=== PATIENT | female | born 1975 | race Caucasian/White ===

== ENCOUNTER → 2017-08-09 | Outpatient (CLI) | payer BC ==
--- NOTE | 2017-08-10 14:15 | Diagnostic Imaging Report ---
EXAMINATION: Bilateral screening mammogram 2D views with tomosynthesis. The current study was also evaluated with a Computer Aided Detection (CAD) system. INDICATION: Screening. PERSONAL HISTORY: No current complaints stated on the questionnaire. COMPARISON: No prior studies are available for comparison. This is a baseline exam. FINDINGS: Allowing for technique and positional differences, no suspicious change is seen. IMPRESSION: No significant change. ACR BI-RADS Category 2: Benign findings. Result letter will be mailed to the patient. Note: At least 10% of breast cancer is not imaged by mammography. Dictated by: Dictated on workstation # [id number]
== END ==
LOC: RAD 14:47
PROVIDERS: ATTEND Nurse Practitioner Family
DX: Z12.31 Encounter for screening mammogram for malignant neoplasm of breast (principal)
CPT/HCPCS: 77067

== ENCOUNTER → 2018-08-17 | Outpatient (CLI) | payer BC ==
[~2018-08-17] MED LIST: HYDR25TA4; LOVA20TA2; METO-395; PRD10T PO
--- NOTE | 2018-08-18 16:52 | Diagnostic Imaging Report ---
Indication: Routine screening. Comparison is made with prior mammogram from 08/09/2017. 2-D and 3-D bilateral screening mammography was performed with CAD. Scattered fibroglandular densities are identified bilaterally. The parenchymal pattern is stable. No dominant mass or malignant-appearing microcalcifications are seen. The axillae are unremarkable. Impression: BI-RADS category 1 No mammographic features suspicious for malignancy are identified. ACR BI-RADS Category 1: Negative. Result letter will be mailed to the patient. Note: At least 10% of breast cancer is not imaged by mammography. Dictated by: Dictated on workstation # [id number]
== END ==
LOC: RAD 15:05
PROVIDERS: ATTEND Nurse Practitioner Family
DX: Z12.31 Encounter for screening mammogram for malignant neoplasm of breast (principal)
CPT/HCPCS: 77067

== ENCOUNTER → 2019-09-04 | Outpatient (CLI) | payer BC ==
--- NOTE | 2019-09-05 10:03 | Diagnostic Imaging Report ---
Digital mammogram. Bilateral screening. This study was compared to the prior exams of 08/17/2018 and 08/09/2017. At this time there are no current complaints. The fibroglandular tissue in both breasts is heterogeneously dense. This does limit the sensitivity of this exam. The density of the fibroglandular tissue is perhaps somewhat greater than on the prior exam. The breasts also seen smaller than on the prior exam. This may be related to interval weight loss. Correlation with patient's history would be recommended. There is no primary or secondary sign of malignancy noted. Impression: There is no evidence for malignancy. ACR BI-RADS Category 1: Negative. Result letter will be mailed to the patient. Note: At least 10% of breast cancer is not imaged by mammography. Dictated by: Dictated on workstation # [id number]
== END ==
LOC: RAD 08:16
DX: Z12.31 Encounter for screening mammogram for malignant neoplasm of breast (principal)
CPT/HCPCS: 77067

== ENCOUNTER → 2022-07-06 | Outpatient (CLI) | payer BC ==
[~2022-07-06] MED LIST changes: -METO-395; +MTP100TCR
--- NOTE | 2022-07-07 14:48 | Diagnostic Imaging Report ---
INDICATION: Routine screening. COMPARISON: 09/04/2019 and 08/17/2018. TECHNIQUE: 2D and 3D bilateral screening mammography was performed with CAD. FINDINGS: Both breasts are heterogeneously dense, limiting the sensitivity of mammography. The parenchymal pattern is stable. No mass or malignant appearing microcalcifications are seen. The axillae are unremarkable. IMPRESSION: No mammographic features suspicious for malignancy are identified. ACR BI-RADS Category 1: Negative. Result letter will be mailed to the patient. Note: At least 10% of breast cancer is not imaged by mammography. Dictated by: Dictated on workstation # [id number]
== END ==
LOC: RAD 15:45
PROVIDERS: ATTEND Family Medicine
DX: Z12.31 Encounter for screening mammogram for malignant neoplasm of breast (principal)
CPT/HCPCS: 77063; 77067

== ENCOUNTER → 2022-11-27 | Outpatient (CLI) | payer BC ==
--- NOTE | 2022-11-27 10:25 | Diagnostic Imaging Report ---
EXAMINATION: US Thyroid. TECHNIQUE: Multiple real-time grayscale images were obtained of the thyroid in various projections. HISTORY: Enlarged right thyroid lobe. COMPARISON: None available. FINDINGS: The right lobe of the thyroid measures 6.6 x 2.2 x 3.1 cm. The left lobe of the thyroid measures 6.2 x 2.0 x 2.6 cm. The isthmus measures 0.7 cm. Enlarged thyroid gland with heterogenous parenchyma. Diffuse moderate hypervascularity of the thyroid gland. There are no discrete nodules. IMPRESSION: Enlarged heterogenous and hypervascular thyroid may be seen with thyroiditis. No suspicious thyroid nodules identified. Dictated by: Dictated on workstation # [id number]
== END ==
LOC: RAD 08:48
PROVIDERS: ATTEND Family Medicine
DX: E04.1 Nontoxic single thyroid nodule (principal)
CPT/HCPCS: 76536

== ENCOUNTER 2023-07-21 05:33 | Outpatient (CLI) | payer BC ==
[~2023-07-21] VITALS: Ht 165 cm; Wt 110.4 kg
[2023-07-21] MEDS ORDERED: CYAN250010 PO (09:53)
[2023-07-21] MEDS ORDERED: MULT-1136 PO (09:53)
[2023-07-21] MEDS ORDERED: CINN500C2 PO (09:53)
[2023-07-21] MEDS ORDERED: TURM500T PO (09:53)
[2023-07-21] MEDS ORDERED: POTA99CA PO (09:53)
[2023-07-21] MEDS ORDERED: FISH1CAP15 PO (09:53)
[2023-07-21] MEDS ORDERED: METF-397 PO (09:53)
[2023-07-21] MEDS ORDERED: CIDE300T3 PO (09:53)
[2023-07-21] MEDS ORDERED: FERR-84 PO (09:53)
[2023-07-21] MEDS ORDERED: CHOL10008 PO (09:53)
== END 2023-07-21 10:11 | disposition home or self-care (01) ==
LOC: PREOP 05:33
PROVIDERS: ATTEND Internal Medicine
DX: Z01.818 Encounter for other preprocedural examination (principal)

== ENCOUNTER 2023-07-30 07:02 | Day surgery (SDC) | payer BC ==
--- NOTE | 2023-07-15 08:40 | HISTORY AND PHYSICAL ---
COLONOSCOPY HISTORY AND PHYSICAL HISTORY OF PRESENT ILLNESS: The patient is a 47-year-old white female referred by Dr. Mancera for her first screening colonoscopy. She denies bright red blood per rectum, melena, change in bowel habit or abdominal pain. She reports she has had one uncle with colon cancer and her mother had history of colon polyps. PAST MEDICAL HISTORY: Significant for history of polycystic ovary disease, hypertension and hyperlipidemia with no known history of vascular disease. PAST SURGICAL HISTORY: She reports no past surgeries. ALLERGIES: Reports no known drug allergies. FAMILY HISTORY: Father around the age of 70 with complications of diabetes, had an MRI and renal failure. Mother at 69, acute respiratory failure. Both were smokers as I recall. SOCIAL HISTORY: She is employed with no past smoking history, but secondhand smoke exposure and no history of alcohol consumption. REVIEW OF SYSTEMS: CONSTITUTIONAL: Denies night sweats, chills, fever or change in weight. PULMONARY: Denies cough, wheezing or shortness of breath. GASTROINTESTINAL: As noted in the HPI. CARDIOVASCULAR: Denies chest pain, syncope, orthopnea, PND, or pedal edema. PHYSICAL EXAMINATION: GENERAL: Reveals a pleasant white female. VITAL SIGNS: Weight 243 pounds, BMI 36, blood pressure 142/82. HEENT: Unremarkable. Sclerae nonicteric. CHEST: Clear to auscultation. CARDIOVASCULAR: Reveals a regular rate and rhythm without murmur, S3, or S4. ABDOMEN: Soft, supple without mass, organomegaly, or tenderness. EXTREMITIES: Revealed no cyanosis, clubbing or edema. ASSESSMENT AND PLAN: The patient is being set up for screening colonoscopy, her first deemed to be of slightly higher than average risk considering an uncle with history of colon cancer. Mother with history of colon polyps and a personal history of overweight status. Prep instructions were given and questions were answered. I thank you for the referral of this pleasant lady. Job ID: [id number] DocumentID: [id number] Dictated Date: 07/13/2023 10:07:51 Director Corporate Security Date: 07/13/2023 11:04:00 Dictated By: EL FLORES MD
[~2023-07-30] VITALS: Ht 165 cm; Wt 110.4 kg
[~2023-07-30 07:02] MED LIST changes: +CHOL10008 PO; +CIDE300T3 PO; +CINN500C2 PO; +CYAN250010 PO; +FERR-84 PO; +FISH1CAP15 PO; +METF-397 PO; +MULT-1136 PO; +POTA99CA PO; +TURM500T PO
[2023-07-30] MEDS ORDERED: LACTATED RINGERS 1,000 ML 1,000 ML IV STA (07:12)
[2023-07-30 07:38] VITALS: BP 147/74
--- NOTE | 2023-07-30 07:51 | Pre-Op Note & Conscious Sedat ---
Pre-Operative Progress Note Date H&P Reviewed: Jul 30, 2023 Time H&P Reviewed: 07:51 History & Physical: H&P Reviewed, Patient Examed, No changes noted Pre-Op Diagnosis: screening Moderate Sedation PreProcedure ASA Score 2 Airway Lungs Heart ASA score ASA 1: a normal healthy patient ASA 2: a patient with a mild systemic disease (mid diabetes, controlled hypertension, obesity ASA 3: a patient with a severe systemic disease that limits activity (angina, COPD, prior Myocardial infarction) ASA 4: a patient with an incapacitating disease that is a constant threat to life (CHF, renal failure) ASA 5: a moribund patient not expected to survive 24 hrs. (ruptured aneurysm) ASA 6: a declared brain- patient whose organs are being harvested. For emergent operations, add the letter E after the classification Mallampati Classification Grade 2 Sedation Plan Analgesia, Amnesia, Plan communicated to team members, Discussed options with patient/fam, Discussed risks with patient/fam The patient is an appropriate candidate to undergo the planned procedure, sedation, and anesthesia. The patient immediately re-assessed prior to indication. EL FLORES MD Jul 30, 2023 07:51
[2023-07-30] MEDS ORDERED: MIDAZOLAM INJ 2 MG/2 ML VIAL ONE (07:57)
--- NOTE | 2023-07-30 08:29 | Progress Note-Post Operative ---
Post-Procedure Note Physician (s)/New Media Strategist (s) Physician EL FLORES MD Pre-Procedure Diagnosis Pre-Procedure Diagnosis: screening Post-Procedure Diagnosis Post-operative diagnosis: Prior to undergoing colonoscopy digital rectal evaluation was performed. Anal sphincter tone was normal and the perianal reflexes intact. No abnormalities noted on digital inspection anal canal distal rectal vault. The colonoscope was then inserted into the rectum and under direct visualization advanced to the cecum. The cecum was identified by identification of the ileocecal valve and the cecal strap. Photographic documentation was obtained. Quality the prep was good. Careful inspection was made as the colonoscope was withdrawn. Findings there are no evidence for internal or external hemorrhoids and the rectum sigmoid colon descending colon splenic flexure transverse colon hepatic flexure unremarkable. A 4 mm sessile polyp was noted in the proximal ascending colon adjacent the ileocecal valve opposite side it was biopsied ablated with no subsequent blood loss. The cecum was unremarkable. A/P 1.Prior to undergoing colonoscopy digital rectal evaluation was performed. Anal sphincter tone was normal and the perianal reflexes intact. No abnormalities noted on digital inspection of the anal canal just rectal vault. the proximal ascending colon with an otherwise normal colonoscopy to the cecum. As long as there are no surprises on histopathology report would advocate consideration for repeat screening colonoscopy in 10 years. I thank you for thrills pleasant lady sincerely El Flores MD. CC: EL Preciado MD Jul 30, 2023 08:29
[2023-07-30 08:30] VITALS: BP 109/58
[2023-07-30 08:35] VITALS: BP 120/57
[2023-07-30 09:25] VITALS: BP 120/57
--- NOTE | 2023-07-30 10:11 | Anesthesia-General Post-Op ---
MAC Patient Condition Mental Status/LOC: Same as Preop Cardiovascular: Satisfactory Nausea/Vomiting: Absent Respiratory: Satisfactory Pain: Controlled Complications: Absent Post Op Complications Complications None Follow Up Care/Instructions Patient Instructions None needed. Anesthesiology Discharge Order Discharge Order Patient is doing well, no complaints, stable vital signs, no apparent adverse anesthesia problems. No complications reported per nursing. TIARA MEDEIROS CRNA Jul 30, 2023 10:11
== END 2023-07-30 09:25 | disposition home or self-care (01) ==
LOC: ENDO 07:02
PROVIDERS: ATTEND Internal Medicine
DX: Z12.11 Encounter for screening for malignant neoplasm of colon (principal); D12.2 Benign neoplasm of ascending colon; Z80.0 Family history of malignant neoplasm of digestive organs
CPT/HCPCS: 84703

== ENCOUNTER → 2023-09-06 | Outpatient (CLI) | payer BC ==
--- NOTE | 2023-09-06 16:36 | Diagnostic Imaging Report ---
INDICATION: SHORTNESS OF BREATH COMPARISON: None FINDINGS: Frontal and lateral views of the chest demonstrate normal heart size and pulmonary vascularity. The lungs are clear. There are no signs of infiltrate, pleural effusions or pneumothoraces. The visualized osseous structures show no acute abnormalities. IMPRESSION: 1. No acute process. No signs of infiltrates, effusions or pneumothoraces. Dictated by: Dictated on workstation # [id number]
== END ==
LOC: RAD 16:03
PROVIDERS: ATTEND Nurse Practitioner Family
DX: R06.02 Shortness of breath (principal)
CPT/HCPCS: 71046